=== PATIENT | male | born 1960 | race Caucasian/White ===

== ENCOUNTER → 2020-06-07 | Outpatient (CLI) | payer OTHER ==
--- NOTE | 2020-06-07 11:57 | XR ---
EXAMINATION TYPE: XR lumbosacral spine min 4V DATE OF EXAM: 06/07/2020 COMPARISON: NONE HISTORY: 59-year-old male right-sided sciatica, [id number] TECHNIQUE: 5 views FINDINGS: Prostatic calcifications infrarenal abdominal aorta. Hypertrophic facet arthropathy mid to lower lumb ar spine. Mild degenerative disc disease throughout. Grade 1 anterolisthesis at L4-L5. Slight dextroc onvex curvature of the lumbar spine. Mild degenerative change at the SI joints. Vertebral body height s are preserved. IMPRESSION: Mild degenerative disc disease throughout. Hypertrophic facet arthropathy mid to lower lumbar spine w ith grade 1 anterolisthesis at L4-L5.
== END | disposition home or self-care (01) ==
LOC: RADXRYALE 10:03
PROVIDERS: ATTEND Physician Assistant Medical
DX: M43.16 Spondylolisthesis, lumbar region (principal); M51.37 Other intervertebral disc degeneration, lumbosacral region; M47.816 Spondylosis without myelopathy or radiculopathy, lumbar region
CPT/HCPCS: 72110

== ENCOUNTER → 2020-08-20 | Outpatient (CLI) | payer OTHER ==
--- NOTE | 2020-08-20 10:12 | XR ---
EXAMINATION TYPE: XR Hip Complete RT DATE OF EXAM: 08/20/2020 CLINICAL HISTORY: Increasing chronic hip pain. TECHNIQUE: AP and frogleg views of the right hip are obtained. COMPARISON: None. FINDINGS: There is no acute fracture/dislocation evident in the right hip. [id number] axial inge int space loss with mild acetabular spurring. Femoral head shape maintained. Right-sided pelvic phleb olith noted. IMPRESSION: As above.
== END | disposition home or self-care (01) ==
LOC: RADXRYALE 09:38
PROVIDERS: ATTEND Physician Assistant Medical
DX: M25.751 Osteophyte, right hip (principal); M25.851 Other specified joint disorders, right hip; I87.8 Other specified disorders of veins
CPT/HCPCS: 73502

== ENCOUNTER → 2022-06-22 | Outpatient (CLI) | payer OTHER ==
--- NOTE | 2022-06-22 07:07 | CTL ---
EXAMINATION TYPE: CT Low Dose Lung DATE OF EXAM ORDERED: 06/22/2022 HISTORY: Personal history tobacco use. Lung cancer screening CT DLP: 113.[address] CTDI: 3.20 mGy Automated exposure control for dose reduction was used. SCREENING VISIT: First screening visit. COMPARISON: Chest radiograph 02/09/2014 TECHNIQUE: Low dose computed tomography scan was performed through the chest at 1 mm thick sections a nd reconstructed images in multiple planes at 1 mm and [address] DIAGNOSTIC QUALITY: Satisfactory FINDINGS: LUNG NODULES: No concerning pulmonary nodules. LUNGS: COPD: Severity: None Fibrosis: Severity: None Lymph nodes: None Other findings: None RIGHT PLEURAL SPACE: Effusion: None Calcification: None Thickening: None Pneumothorax: None LEFT PLEURAL SPACE: Effusion: None Calcification: None Thickening: None Pneumothorax: None HEART: Heart Size: Normal Coronary Calcification: Small Pericardial Effusion: None OTHER FINDINGS: Upper abdomen: None Bony thorax: None Supraclavicular region: None Other: None IMPRESSION: No concerning pulmonary nodules. CT LUNG RAD AND CT CHEST RECOMMENDATION: Lung-Rad 1 Negative: Continue annual screening with LDCT in 12 months. S Modifier (other clinically significant findings): None
== END | disposition home or self-care (01) ==
LOC: RADCTMAIN 06:33
PROVIDERS: ATTEND Family Medicine
DX: Z12.2 Encounter for screening for malignant neoplasm of respiratory organs (principal); F17.200 Nicotine dependence, unspecified, uncomplicated
CPT/HCPCS: 71271